=== PATIENT | female | born 1990 | race Caucasian/White ===

== ENCOUNTER → 2017-09-23 12:54 | Outpatient (CLI) | payer OTHER, SELFPAY ==
[2017-10-02 22:06] LABS: QNTFERON TB Ag Minus Nil Value 0.06 IU/mL (.); QNTFERON TB Ag Value 0.32 IU/mL (.); QNTFERON TB Mitogen Value > 10.00 IU/mL (.); QNTFERON TB Nil Value 0.26 IU/mL (.)
[2017-10-03 11:11] LABS: QNTIFERON TB Gold Negative (Negative)
== END ==
PROVIDERS: Visit Provider Dentist Oral and Maxillofacial Surgery
DX: Z02.0 Encounter for examination for admission to educational institution (principal)
CPT/HCPCS: 36415; 86480

== ENCOUNTER → 2018-04-15 09:16 | Outpatient (CLI) | payer OTHER, SELFPAY ==
--- NOTE | 2018-04-15 09:19 | US_ITS ---
STUDY: ABDOMINAL ULTRASOUND - RIGHT UPPER QUADRANT REASON FOR VISIT: Female, 27 years old. Intermittent epigastric pain, nausea and vomiting. TECHNIQUE: Ultrasound evaluation of the right upper quadrant was performed with real-time and static warren-scale imaging. TECHNICAL QUALITY: Adequate. COMPARISON: None. FINDINGS: Liver: The liver measures 15.7 cm. There is normal echogenicity of the liver. The bile ducts are within normal limits. There is hepatic color flow. The direction of portal flow is hepatopetal. There is no demonstrated mass lesion. Gallbladder: Normal distended gallbladder. The gallbladder wall measures 2.5 mm. There is a negative sonographic Toth's sign. There is no pericholecystic fluid. There are no gallstones. Common Bile Duct (C.B.D.): The common bile duct measures 2.7 mm. Pancreas: Normal size of the head, body and tail of the pancreas. There is normal echogenicity of the pancreas. There is no demonstrated pancreatic mass or cyst. Right Kidney: Normal size of the right kidney. The right kidney measures 10.7 x 5.2 x 3.8 cm. Normal renal cortex. The right cortex measures 1.2 cm. There is no demonstrated renal mass or cyst. There is no right hydronephrosis. US/Gallbladder IMPRESSION: Normal right upper quadrant ultrasound examination. Electronically Signed: Chris Jarrell MD at 0:57 EST Tel , Service support ,
[2018-04-15 10:34] LABS: Hematocrit 40.4 % (37-47); Hemoglobin 12.9 g/dl (12.0-15.0); Mean Corp Hgb Conc 31.9 g/gl (32-36); Mean Corpuscular Hgb 29.8 pg (27.0-32.0); Mean Corpuscular Volume 93.3 fL (81-99); Mean Platelet Vol. 10.4 fl (6.2-12.0); Platelet Count 234 K/mm3 (150-450); RBC Distribution Width CV 12.3 % (11.6-14.6); RBC Distribution Width SD 41.6 fl (35.1-43.9); Red Blood Count 4.33 M/mm3 (4.2-5.4); White Blood Count 4.9 K/mm3 (4.4-11.0)
[2018-04-15 10:35] LABS: Scan Indicated on CBC? Y/N NO
[2018-04-15 10:58] LABS: ALB/GLOB Ratio 1.1 RATIO (0.9-2.4); AST(SGOT) 26 U/L (15-37); Alanine Aminotransfer ALT/SGPT 50 U/L (13-56); Albumin, Serum 3.9 g/dL (3.2-5.0); Alkaline Phosphatase 57 U/L (45-117); Anion Gap 5 (5-15); BUN 9 mg/dL (7-18); BUN/Creat Ratio 11.7 RATIO (10-20); Calcium,Total 8.9 mg/dL (8.5-10.1); Chloride 109 mmol/L (98-107); Creatinine, Serum 0.77 mg/dL (0.55-1.02); EST Glomerular Filtration Rate 96 mL/min (>60); Est Glom Filt Rate - Afr Amer 116 mL/min (>60); Globulin 3.4 g/dL (2.2-4.2); Glucose 86 mg/dL (74-106); Potassium 4.8 mmol/L (3.5-5.1); Protein, Total 7.3 g/dL (6.4-8.2); Sodium Level 142 mmol/L (136-145)
== END ==
PROVIDERS: Referring Provider Physician Assistant; Visit Provider Physician Assistant
DX: R10.9 Unspecified abdominal pain (principal); R11.10 Vomiting, unspecified
CPT/HCPCS: 76705; 80053; 85027

== ENCOUNTER → 2018-05-08 10:47 | Outpatient (CLI) | payer OTHER, SELFPAY ==
[2018-04-22 10:25] VITALS: BMI 23.3
--- NOTE | 2018-05-08 10:50 | NM_ITS ---
CLINICAL: 28-year-old female with reported history of abdominal pain and nausea. RADIONUCLIDE HEPATOBILIARY SCINTIGRAPHY COMPARISON: Abdominal ultrasound report 04/15/2018 FINDINGS: Following the intravenous administration of 5.3 mCi of 99m Tc Mebrofenin, hepatobiliary images reveal: 1. Relatively prompt and homogeneous radiopharmaceutical concentration is noted by a normal sized liver. No parenchymal defects are identified. 2. Gallbladder activity is identified at 15 minutes post radiopharmaceutical administration. 3. Small intestinal tract is observed at 30 minutes following tracer injection. 4. Washout of the radiopharmaceutical by the hepatic parenchyma appears qualitatively normal. 5. There is scintigraphic evidence of pre-CCK duodenal gastric reflux. Cholecystokinin (0.02 ug/kg) was administered intravenously over a 30-minute period. The post CCK gallbladder ejection fraction calculated at 22 minutes following Cholecystokinin administration was noted to be 53.0 % (normal greater than 35%). During 30 minutes of post CCK imaging, there is no scintigraphic evidence of reflux of the radiotracer into the common hepatic duct or refilling of the gallbladder. There is scintigraphic evidence of continued post CCK duodenal gastric reflux. NM/Hepatobilliary Img w/Pharm Int IMPRESSION: 1. A gallbladder ejection fraction calculated to be greater than 35% following the administration of Cholecystokinin makes the probability of functional hepatobiliary disease (gallbladder and/or sphincter of Oddi dyskinesia) and/or organic hepatobiliary disease (chronic acalculous cholecystitis and/or cystic duct syndrome) to be low. (Denice Byrne et al, Journal of Nuclear Medicine 32:1695, 1990). 2. There is scintigraphic evidence of pre-post CCK duodenal-gastric reflux. (Misael et al, Nucl Med Ros Mickie Press pg. 35, 1980). Electronically Signed: Andrew Garvey DO at 22:21 EDT Tel , Service support ,
== END ==
PROVIDERS: Referring Provider Surgery; Visit Provider Surgery
DX: R10.9 Unspecified abdominal pain (principal)
CPT/HCPCS: 78227; A9537; J2805

== ENCOUNTER 2018-06-12 05:35 | Day surgery (SDC) | payer OTHER, SELFPAY ==
[2018-04-22 10:25] VITALS: BMI 23.3
[2018-06-12 05:59] VITALS: BP 92/69; PULSE 62; RESP 16; TEMP 36.8; O2SAT 100; BMI 21.8
--- NOTE | 2018-06-12 05:59 | PCM.HP.BLA ---
Problem List (1) Abdominal pain Status: Acute Qualifiers: Abdominal location: generalized Qualified Code(s): R10.84 - Generalized abdominal pain (2) Change in bowel habit Status: Acute (3) Nausea & vomiting Status: Acute Qualifiers: Vomiting Intractability: unspecified History and Physical Date of Admission: 06/12/18 MR#:[id number] Name: LÓPEZ RIVER Rep #: [id number] : 1990 Provider: Alex Eid MD Age/Sex: 27/F Location: [facility] Status: Signed Intake Vital Signs 04/22/18 Height 5 ft 5 in 04/22/18 Weight: 140 lb 1 oz 04/22/18 Body Mass Index (BMI) 23.3 04/22/18 Blood Pressure 105/66 04/22/18 Blood Pressure Location Lt brachial 04/22/18 Blood Pressure Position Sitting 04/22/18 Respiratory Rate 16 04/22/18 Pulse Rate 65 04/22/18 Pulse Ox 100 Intake Visit Reasons: abd pain 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 Required: No Is patient in pain?: No Allergies No Known Allergies Allergy (Verified 04/22/18 10:26) Medications fluoxetine 40 mg capsule 40 mg PO DAILY 04/22/18 [History Confirmed 04/22/18] Is last menstrual period known: No Post menopausal: No Patient : No PFSH Medical History Abdominal pain (Acute) Change in bowel habit (Acute) Nausea & vomiting (Acute) No pertinent past medical history (Acute) Surgical History History of removal of skin mole (Acute) Family History Grandmother Colon cancer Cancer ovarian Grandmother Lupus Asthma Thyroid disorder Social History Smoking Status: Never smoker alcohol intake: current HPI HPI HPI: LÓPEZ RIVER, is a 27 F who presents to the office today for further evaluation of complexity of issues. Over the years the patient has had variable bowel habits sometimes diarrhea sometimes constipation. More recently those symptoms have escalated. But most pertinently February 2018 while she was at work she suddenly felt flushed and hot had significant nausea weakness had severe emesis. She was not improved but had missed work the next day as well. Gradually the nausea resolved. She had had biliary emesis. Then 2 weeks ago she had a repeat similar episode of upper abdominal pain nausea vomiting. She was in [place] at the time was seen at an urgent care center or a gallbladder ultrasound was ordered back here at the [facility] and that was interpreted as normal. The patient had laboratory including a CBC and a complete metabolic profile and that also was normal Does however the nausea has persisted she has dropped down to a very bland diet saltine crackers applesauce. She thinks that her stools are darker but she has not noticed any bright red blood. Urine test was negative. She did travel to [facility] in September 2017 but she had no illnesses while she was there. She has had no recent travel. At the time that we she was seen in the urgent care center couple weeks back she was placed on Nexium. She states that is not made improvement. She has not been tested for H. pylori. There is a family history of colon cancer in the grandparent age as well as colon cancer in a relative his youngest 16yo Patient is accompanied by her mother today who is able to provide additional descriptive information ROS General General: No weight change, appetite, fatigue, colon cancer, breast cancer or weakness HEENT HEENT: No difficulty swallowing, eye injury, eye surgery, swollen glands or hoarseness Endo Endocrine: No thyroid disease, diabetes mellitus, thyroid cancer, Hair loss, heat intolerance or cold intolerance Cardio Cardiovascular: No murmur, pacemaker, heart disease, atrial fibrillation, high blood pressure, heart attack, heart stent, palpitations, shortness of breat with exertion or chest pain Psych Psychiatric: Yes depression and anxiety; no hearing voices Resp Respiratory: No shortness of breath, No sleep apnea, No cough, No COPD, No asthma, No emphysema, No wheezing Gastro Gastrointestinal: Yes abdominal pain, Yes nausea or vomiting, Yes diarrhea, Yes constipation, No blood in stool, No acid reflux, No hemorrhoids, No ulcers, No gallbladder problem, No black,tarry stools Neuro Neurologic: No weakness Exam Const General: cooperative, healthy appearing, comfortable, no acute distress Nutritional Appearance: average body habitus Orientation: alert, awake, oriented x3 HENMT Head: normal to inspection Eyes General: appearance normal, both eyes and all related structures Resp Effort & Inspection: normal respiratory effort Auscultation: clear to auscultation bilaterally Cardio Rate: regular rate Rhythm: regular rhythm Heart Sounds: no murmurs GI Palpation: soft, no hepatosplenomegaly Auscultation: normal bowel sounds Skin General: no rashes or lesions noted Neuro Cranial Nerves: CN's II-XI intact bilaterally Extrem General: no calf tenderness bilaterally Psych Affect: normal affect Assessment & Plan Problems 1. Bilious vomiting with nausea R11.14 2. Change in bowel habit R19.4 3. Epigastric pain R10.13 Plan 27-year-old female with intractable nausea currently. Epigastric abdominal pain. Change of bowel habits with intermittent constipation and diarrhea. Normal gallbladder ultrasound and laboratory. Family history of colon cancer. Etiology of this patient's presentation not determined. I recommend combined esophagogastroduodenoscopy certainly with H. pylori biopsy and colonoscopy with anticipated random colonic biopsies for potential for microcytic colitis. I described the technique, benefit, risks and alternatives. I also recommend a hepatobiliary scan. With the patient and mother present I did discuss the potential for a lap scopic cholecystectomy with a tentative diagnosis of biliary dyskinesia. We discussed technique, benefit, risks and alternatives. No guarantees of success were offered. I strongly recommend pursuing diagnostic efforts. The patient has markedly alter her diet currently being a very bland minimal diet. We briefly additionally discussed potential for IBS but I do not have enough definitive information at this time to claim that is a diagnosis. I appreciate the opportunity of assisting with her surgical care. She currently does not have a primary care physician Alex Eid M.D., F.A.C.S. Since her office visit a hepatobiliary scan has been obtained. The ejection fraction is felt to be normal at 53%. As anticipated above we will proceed with a esophagogastroduodenoscopy with anticipated biopsies and colonoscopy and the anticipated random biopsies. She has had an opportunity to ask and have questions answered area we will proceed with her discretion. Alex Eid M.D., F.A.C.S.
[2018-06-12 06:02] LABS: Internal QC Validated? YES +Cl - CLEAR BKGD; Pregnancy, Urine Negative Negative
--- NOTE | 2018-06-12 06:30 | COLBX_PTH ---
PATIENT: LÓPEZ RIVER LOC: EN U#:[id number] AGE/SX: 28/F ROOM: RE06/12/[address]: Dr. Alex Eid MD : 1990 BED: DIS: 06/12/2018 SPEC #: [id number] RECD: 06/12/18 11:07 STATUS: CONCHA JAMES #: [id number] JUSTICE: 06/12/18 06:[address]: Alex Eid DEPT: SURGICAL PATHOLOGY RECD BY: Mauri Cadena ENTERED: 06/12/18 12:43 SP TYPE: COLON BX OTHR DR: No Primary Care Phys Tissues: A - Duodenum, NOS B - Gastric mucous membrane C - Gastric mucous membrane D - Esophageal mucous membrane E - Esophageal mucous membrane F - COLON BIOPSY Procedures: Surgery Specimen Level IV HEADER OPERATION: Colonoscopy, EGD ([facility]) PRE-OP DIAGNOSIS: Nausea, vomiting, change in bowel habits TISSUE SUBMITTED: A - Duodenum biopsy, B - Antrum biopsy for H. pylori and path, C - Fundus biopsy, D - Distal esophagus biopsy, E - Mid esophagus biopsy, F - Random colon biopsies MICROSCOPIC DIAGNOSIS A. Duodenum, biopsy: Fragments of duodenal mucosa with congestion, hemorrhage, mild nonspecific chronic inflammation and Jeferson gland hyperplasia. B. Antrum, biopsy: Mild gastritis. See microscopic description and comment. C. Fundus, biopsy: A fragment of gastric mucosa with mild chronic inflammation and lymphoid aggregate formation, favor benign. D. Distal esophagus, biopsy: A fragment of squamous epithelium with congestion, hemorrhage and mild chronic inflammation. E. Mid esophagus, biopsy: A fragment of squamous epithelium, no pathologic diagnosis. F. Colon, random biopsy: Fragments of colonic mucosa, no pathologic diagnosis. SJ:deandre 06/13/18 COMMENT B. The results of immunohistochemistry for Helicobacter pylori will be reported separately ([id number]). MICROSCOPIC DESCRIPTION Slides are reviewed. B. The specimen shows fragments of gastric mucosa with chronic inflammatory cell infiltrates in the lamina propria consisting of lymphocytes and plasma cells, consistent with mild chronic gastritis. GROSS DESCRIPTION A - Received in fixative is one container labeled with the patient's name and designated duodenum biopsy. The specimen consists of two irregular fragments of pink tissue that in aggregate measure 0.3 x 0.2 x 0.1 cm. The specimen is totally submitted in one cassette. B - Received in fixative is one container labeled with the patient's name and designated antrum biopsy. The specimen consists of one irregular fragment of pink soft tissue that measures 0.2 x 0.1 x 0.1 cm. The specimen is totally submitted in one cassette. C - Received in fixative is one container labeled with the patient's name and designated fundus biopsy. The specimen consists of one irregular fragment of pink soft tissue that measures 0.2 x 0.2 x 0.1 cm. The specimen is totally submitted in one cassette. D - Received in fixative is one container labeled with the patient's name and designated distal esophagus. The specimen consists of one irregular fragment of pink soft tissue that measures 0.2 x 0.1 x 0.1 cm. The specimen is totally submitted in one cassette. E - Received in fixative is one container labeled with the patient's name and designated mid esophagus. The specimen consists of one irregular fragment of pink soft tissue that measures 0.1 x 0.1 x 0.1 cm. The specimen is totally submitted in one cassette. F - Received in fixative is one container labeled with the patient's name and designated random colon biopsy. The specimen consists of five irregular fragments of pink soft tissue that in aggregate measure 0.4 x 0.2 x 0.1 cm. The specimen is totally submitted in one cassette. / CE:deandre 06/12/18 TC:5 CPT: 22361 x6
--- NOTE | 2018-06-12 06:30 | IMM_PTH ---
PATIENT: LÓPEZ RIVER LOC: EN U#:[id number] AGE/SX: 28/F ROOM: RE06/12/[address]: Dr. Alex Eid MD : 1990 BED: DIS: 06/12/2018 SPEC #: [id number] RECD: 06/12/18 14:50 STATUS: CONCHA RAMIREZ #: [id number] JUSTICE: 06/12/18 06:[address]: Alex Eid DEPT: IMMUNOHISTOCHEMISTRY RECD BY: Brittany Parker ENTERED: 06/12/18 14:51 SP TYPE: IMMUNO OTHR DR: No Primary Care Phys Tissues: B - Stomach, NOS Procedures: H Pylori (initial) PHYSICIAN & INSTITUTION [place] [phone] SPECIMEN INFORMATION: Tissue Source: B - Antrum biopsy Clinical Info: Nausea, vomiting, change in bowel habits Specimen Number: [id number] CPT code: 74418 METHODOLOGY: Deparaffinized sections of prefer/formalin-fixed tissue or PAP/DQ stained slides are incubated with monoclonal/polyclonal antibodies/oligonucleotide probes. Localization is made via biotin free immunoperoxidase method. Appropriate controls are performed and reacted as expected. Results on target cell population are indicated in the following table: RESULTS: ANTIBODY / CLONE RESULT Block B H Pylori (polyclonal) negative These tests were developed and their performance characteristics determined by [facility]. They may not have been cleared or approved by the U.S. Food and Drug Administration. The FDA has determined that such clearance or approval is not necessary. INTERPRETATION: B. Antrum biopsy: Negative for Helicobacter pylori organisms. SJ:deandre 06/13/18
[2018-06-12 07:05] VITALS: BP 89/59; BP 92/69; PULSE 74; RESP 14; TEMP 36.1; O2SAT 98
--- NOTE | 2018-06-12 07:07 | OP.ENDO_ITS ---
06/12/2018 No Primary Care Physician Re : Upper GI endoscopy procedure for Corie Cabezas Dear Care Physician This procedure was performed on Tuesday, June 12, 2018. My impressions and recommendations are as follows: Impressions : - Z-line regular, 41 cm from the incisors. Biopsied distal esophagus - Normal mid esophagus. Biopsied. - Small hiatal hernia. - Erythematous mucosa in the gastric fundus. Biopsied. - Erythematous mucosa in the antrum. Biopsied. - Normal examined duodenum. Biopsied. Recommendations : - Discharge patient to home. - Resume previous diet. - Continue present medications. - Use Prilosec (omeprazole) 40 mg PO daily. My findings are described in the full procedure note, which is enclosed. If I can be of further assistance, please feel free to contact me at Doctor phone number(s): Work: . Sincerely, Alex Eid MD 06/12/2018 7:06:55 AM This report has been signed electronically.
--- NOTE | 2018-06-12 07:09 | OP.ENDO_ITS ---
06/12/2018 No Primary Care Physician Re : Colonoscopy procedure for Corie Cabezas Dear Care Physician This procedure was performed on Tuesday, June 12, 2018. My impressions and recommendations are as follows: Impressions : - The entire examined colon is normal. Biopsied. Recommendations : - Discharge patient to home. - Resume previous diet. - Continue present medications. - Telephone my office for pathology results in 1 week. - Repeat colonoscopy at age 52. My findings are described in the full procedure note, which is enclosed. If I can be of further assistance, please feel free to contact me at Doctor phone number(s): Work: . Sincerely, Alex Eid MD 06/12/2018 7:09:10 AM This report has been signed electronically.
[2018-06-12 07:10] VITALS: BP 92/69; BP 93/58; PULSE 59; RESP 14; O2SAT 100
[2018-06-12 07:15] VITALS: BP 92/69; BP 98/61; PULSE 56; RESP 16; O2SAT 100
[2018-06-12 07:21] VITALS: BP 102/62; BP 92/69; PULSE 62; RESP 16; TEMP 36.2; O2SAT 100
[2018-06-12 07:40] VITALS: BP 92/69
== END 2018-06-12 08:06 | disposition home or self-care (01) ==
LOC: EN 05:36 → AC 05:38
PROVIDERS: Anesthesiology; Visit Provider Surgery
PROC: 0DJD8ZZ Inspection of Lower Intestinal Tract, Via Natural or Artificial Opening Endoscopic (ICD-10-PCS; CPT 45378; principal; 2018-06-12 06:25)
DX: K29.50 Unspecified chronic gastritis without bleeding (principal); K20.9 Esophagitis, unspecified; K44.9 Diaphragmatic hernia without obstruction or gangrene; F41.9 Anxiety disorder, unspecified; F32.9 Major depressive disorder, single episode, unspecified; Z80.0 Family history of malignant neoplasm of digestive organs; Z79.899 Other long term (current) drug therapy
CPT/HCPCS: 43239; 45380; 81025; 88305; 88342; J7120; J2405